=== PATIENT | female | born 2000 | race Caucasian/White ===

== ENCOUNTER 2020-04-10 07:51 | Outpatient (CLI) | payer OTHER | END 2020-04-10 08:06 | disposition home or self-care (01) | LOC: RAD 07:51 | DX: L72.0 Epidermal cyst (principal) ==

== ENCOUNTER 2020-05-03 20:14 | Emergency (ER) | payer OTHER ==
[~2020-05-03] VITALS: Ht 172.7 cm; Wt 64.4 kg
== END 2020-05-03 22:13 | disposition home or self-care (01) ==
LOC: ER 20:14
DX: S01.02XA Laceration with foreign body of scalp, initial encounter (principal); S06.2X9A Diffuse traumatic brain injury with loss of consciousness of unspecified duration, initial encounter; W18.39XA Other fall on same level, initial encounter; Y93.89 Activity, other specified; Y92.098 Other place in other non-institutional residence as the place of occurrence of the external cause; Y99.8 Other external cause status

== ENCOUNTER 2020-05-17 14:06 | Emergency (ER) | payer OTHER ==
[~2020-05-17] VITALS: Ht 172.7 cm; Wt 63.5 kg
[2020-05-17] MEDS ORDERED: LO LOESTRIN FE1 EACH PO (14:13)
== END 2020-05-17 15:48 | disposition home or self-care (01) ==
LOC: ER 14:06
DX: Z48.02 Encounter for removal of sutures (principal)

== ENCOUNTER 2022-04-29 06:58 | Outpatient (CLI) | payer OTHER ==
[~2022-04-29 06:58] MED LIST: LO LOESTRIN FE1 EACH PO
== END 2022-04-29 15:42 | disposition home or self-care (01) ==
LOC: SONOGRAMA 06:58
PROVIDERS: ATTEND Internal Medicine Gastroenterology
DX: D27.9 Benign neoplasm of unspecified ovary (principal); K80.00 Calculus of gallbladder with acute cholecystitis without obstruction

== ENCOUNTER 2022-11-02 21:31 | Emergency (ER) | payer OTHER ==
[~2022-11-02] VITALS: Ht 172.7 cm; Wt 60.3 kg
== END 2022-11-03 01:02 | disposition home or self-care (01) ==
LOC: ER 21:31
DX: G44.209 Tension-type headache, unspecified, not intractable (principal)